=== PATIENT | female | born 1990 | race Caucasian/White ===

== ENCOUNTER 2018-03-05 09:59 | Emergency (ER) | payer SELFPAY | END 2018-03-05 11:04 | disposition home or self-care (01) | LOC: ERS 09:59 | DX: J02.0 Streptococcal pharyngitis (principal); F32.9 Major depressive disorder, single episode, unspecified | CPT/HCPCS: 87430; 87804; 99283 ==

== ENCOUNTER 2019-11-19 14:33 | Day surgery (SDC) | payer OTHER ==
[2019-11-19] MEDS ORDERED: hydrALAZINE 20 MG/ML VIAL SLOW IVP PRN (15:28)
[2019-11-19 15:36] VITALS: BMI 36.2
--- NOTE | 2019-11-19 15:50 | HP ---
TIME: 1520 hours to 1535 hours. LOCATION: Triage bed A. REASON FOR EVALUATION/CHIEF COMPLAINT: Decreased movement. This is a patient of Dr. Mayen. HISTORY OF PRESENT ILLNESS: In brief, this is a 29-year-old, G3, P2, whose last delivery was by , whose due date is on December 16, 2019, placing her at 36 weeks. She has a repeat scheduled based on her report on December 12, 2019. She is here for decreased movement. She states that she had an ultrasound performed just this last past Wednesday in Dr. Mayen's office and there was an unclear "sac" noted, but no other information was given. She was told to keep her followup appointment. She denies contractions, vaginal bleeding, or leakage of fluid. REVIEW OF SYSTEMS: Complete review of systems was checked and is otherwise negative unless specified in the HPI. PAST MEDICAL HISTORY: Negative. PAST SURGICAL HISTORY: Includes a laparoscopy for endometriosis in 2016. OB HISTORY: Significant for vaginal as well as a and the was in 2017. ALLERGIES: NONE. PHYSICAL EXAMINATION: VITAL SIGNS: Stable. She is afebrile. She is normotensive. Blood pressure is 120/70s. GENERAL: Clinically, she is in no acute distress. ABDOMEN: Soft and nontender. PELVIC: Deferred as there is no evidence of contractions. There is no gross evidence of bleeding or leakage of fluid. On monitor: The nonstress test was reviewed by me and it is reactive with moderate variability, and acceleration. The rate is around 130 to 140 and there are no pathological decelerations. There are no contractions on tocodynamometer. ASSESSMENT: This is a patient, who is a multigravida at 36 weeks with decreased movement, but with a reactive nonstress test. Nonstress test information was given by me to the patient. PLAN: 1. Reassurance given. 2. The patient told to keep her followup appointment with Dr. Mayen. 3. Kick counts reviewed with the patient, although there is limited effectiveness based on the data was also reviewed. Job ID: [id number]
== END 2019-11-19 16:01 | disposition home or self-care (01) ==
LOC: L&D/OP 14:33
PROVIDERS: ATTEND Student in an Organized Health Care Education/Training Program
DX: O36.8130 Decreased fetal movements, third trimester, not applicable or unspecified (principal); O34.219 Maternal care for unspecified type scar from previous cesarean delivery; Z3A.36 36 weeks gestation of pregnancy

== ENCOUNTER 2019-12-12 09:02 | Inpatient (IN) | payer BC, MEDICAID, OTHER, SELFPAY ==
[2019-12-12] MEDS: Lactated Ringer's 1,000 ML IV SCH ×2 (09:25→10:14)
[2019-12-12 09:30] VITALS: BMI 36.8
[2019-12-12] MEDS ORDERED: Bicitra 30 ML UDCUP ONE (09:33)
[2019-12-12] MEDS ORDERED: Ondansetron PF 4 MG/2 ML Vial IVP PRN ×3 (09:39→13:55)
[2019-12-12] MEDS ORDERED: Promethazine HCl 25 MG/ML VIAL IM PRN ×3 (09:39→13:55)
[2019-12-12] MEDS ORDERED: hydrALAZINE 20 MG/ML VIAL SLOW IVP PRN ×2 (09:39→13:55)
[2019-12-12] MEDS ORDERED: Bicitra 30 ML UDCUP PO SCH (09:45)
[2019-12-12] MEDS ORDERED: CEFAZOLIN 2 GM in Premix Bag 1 BAG IVPB SCH (09:45)
[2019-12-12 09:56] LABS: Hemoglobin 11.5 g/dL (12.0-16.0); Mean Corpuscular HGB CONC 32.9 g/dL (32.0-36.0); Mean Corpuscular Volume 82.1 fL (78.0-98.0); Mean Platelet Volume 9.1 fL (7.4-10.4); Platelet Count 173 thou/uL (130-400); RBC Distribution Width 13.2 % (11.5-14.5); Red Blood Cell (RBC) Count 4.25 mill/uL (4.20-5.40); White Blood Cell (WBC) Count 7.9 thou/uL (4.8-10.8)
--- NOTE | 2019-12-12 10:13 | PDOC.LDHP ---
Labor and Delivery H&P Chief complaint: scheduled section HPI: 29yo at 39w3d by LMP here for RCS. No complaints. Current gestational age (weeks): 39 Due date: 12/16/19 Dating criteria: last menstrual period Grav: 3 Para: 2 Current complications: none Abnormal US findings: No Past Medical History: denies Current medications: pre-alon vitamins Previous surgical history: low tranverse CS, other (laparoscopy) Allergies/Adverse Reactions: Allergies Allergy/AdvReac Type Severity Reaction Status Date / Time No Known Allergies Allergy Verified 12/12/19 09:28 Social history: none - Physical Exam Vital signs reviewed and normal: yes General: NAD Heart: RRR Lungs: CTAB Abdomen: gravid Extremeties: no edema FHT: category 1 Whitaker contractions every: none - OB Labs Blood type: B RH: positive Antibody Screen: negative HIV: negative RPR: negative HEPSAg: negative 1 hour GCT: negative GBS: negative Urine drug screen: negative Rubella: immune - Assessment L&D Assessment: scheduled repeat section - Plan Plan: admit to L&D, to OR for section, informed consent obtained, anesthesia consult for pain management
[2019-12-12 10:34] LABS: HBSAg Index 0.24 S/CO (0-0.99); Hep B Surf Ag Non-Reactive S/CO (NonReactive); Syphilis Antibody Nonreactive (Nonreactive); Syphilis Antibody Index 0.05 S/CO (<1.00 Non-Reactive)
[2019-12-12] MEDS ORDERED: Oxytocin 10 UNITS/ML VIAL ONE ×3 (10:36→11:06)
[2019-12-12] MEDS ORDERED: MORPHINE 5 MG/10 ML PF VIAL ONE (10:36)
[2019-12-12] MEDS ORDERED: ePHEDrine/0.9% NaCl/PF SYRINGE 50 mg/10 ml ONE (11:05)
[2019-12-12] MEDS ORDERED: Ketorolac Tromethamine 30 MG/ML VIAL ONE (11:05)
[2019-12-12] MEDS ORDERED: Metoclopramide HCl 10 MG/2 ML VIAL ONE (11:05)
[2019-12-12] MEDS ORDERED: Ondansetron PF 4 MG/2 ML Vial ONE (11:05)
[2019-12-12] MEDS ORDERED: PHENYLEPHRINE-NS 100 MCG/ML 10 ML SYRINGE ONE (11:05)
[2019-12-12] MEDS ORDERED: Dexamethasone 20 MG/5 ML VIAL ONE (11:05)
[2019-12-12] MEDS ORDERED: Naloxone HCl 0.4 mg/ml Vial IVP PRN ×2 (11:47)
[2019-12-12] MEDS ORDERED: Promethazine HCl 25 MG SUPP PR PRN (11:47)
[2019-12-12] MEDS ORDERED: Naloxone HCl 0.4 mg/ml Vial IV PRN (11:47)
[2019-12-12] MEDS ORDERED: diphenhydrAMINE 50 MG/ML VIAL IVP PRN (11:47)
[2019-12-12] MEDS ORDERED: L&D-Morphine 4 MG/ML VIAL SLOW IVP PRN (11:47)
[2019-12-12] MEDS ORDERED: Meperidine HCl/PF 25 MG/ML VIAL SLOW IVP PRN (11:47)
[2019-12-12] MEDS ORDERED: HYDROmorphone 2 MG/ML VIAL SLOW IVP PRN (11:47)
[2019-12-12] MEDS ORDERED: Ondansetron HCl/PF 4 MG/2 ML Vial IVP PRN (11:47)
[2019-12-12] MEDS ORDERED: Communication Order-Pharmacy FS SCH (12:00)
[2019-12-12] MEDS ORDERED: Lanolin Ointment 7 GM TUBE TOP PRN (13:55)
[2019-12-12] MEDS ORDERED: Bisacodyl 10 MG SUPP PR PRN (13:55)
[2019-12-12] MEDS ORDERED: Acetaminophen 325 MG TAB PO PRN (13:55)
[2019-12-12] MEDS ORDERED: diphenhydrAMINE 25 MG CAP PO PRN (13:55)
[2019-12-12] MEDS ORDERED: Ibuprofen 800 MG TAB PO SCH (14:00)
--- NOTE | 2019-12-12 14:37 | PDOC.OPDEL ---
OB Operative/Delivery Note Delivery Dr/Surgeon: Tiarra Assist: Edita Pre-Delivery Diagnosis: scheduled section Procedure/Post Delivery Dx: repeat low transverse CS Weeks gestation: 39 Anesthesia: spinal - Findings A Sex: female - 1 min: 9 - 5 min: 9 - Additional Findings/Plan Placenta delivered: spontaneous findings: low transverse hysterotomy without extension, normal uterus, normal tubes, normal ovaries Estimated blood loss: 500cc Post delivery plan: routine recovery
[2019-12-12] MEDS: Ketorolac Tromethamine 30 MG/ML VIAL IVP PRN (17:11)
[2019-12-12] MEDS: Ferrous Sulfate 325 MG TAB PO SCH (22:46)
[2019-12-12] MEDS: Docusate Calcium (SURFAK) 240 MG CAP PO SCH (22:46)
[2019-12-13] MEDS ORDERED: Zolpidem Tartrate 5 MG TAB PO PRN (00:30)
[2019-12-13] MEDS ORDERED: HYDROcodone/Acetaminophen 5/325 mg Tablet PO PRN (00:30)
[2019-12-13] MEDS ORDERED: Sodium Chloride 0.9% 10 ML ONE (03:52)
[2019-12-13] MEDS: Ketorolac Tromethamine 30 MG/ML VIAL IVP PRN (03:56)
[2019-12-13] MEDS: Simethicone Chewable 80 MG TAB PO PRN ×2 (03:56→11:52)
[2019-12-13 06:34] LABS: Hemoglobin 10.2 g/dL (12.0-16.0); Mean Corpuscular HGB CONC 34.9 g/dL (32.0-36.0); Mean Corpuscular Hemoglobin 28.8 pg (27.0-31.0); Mean Corpuscular Volume 82.7 fL (78.0-98.0); Mean Platelet Volume 8.8 fL (7.4-10.4); Platelet Count 178 thou/uL (130-400); RBC Distribution Width 13.1 % (11.5-14.5); Red Blood Cell (RBC) Count 3.52 mill/uL (4.20-5.40)
--- NOTE | 2019-12-13 08:31 | PDOC.PP ---
Post Progress Note Post Day #: 1 Subjective: PT is doing well on PPD1. She has minimal soreness. She has minimal vaginal bleed < menses. She is breast feeding with good latch ust concerned she is not producing milk yet. PT has been up and ambulatory and is passing gas. She had barroso out a few hours ago and is attempting to try to urinate. She has no leg swelling, CP or SOB. PO intake tolerated: yes Flatus: yes Ambulation: yes Vital Signs (12 hours) Temp Pulse Resp BP Pulse Ox 12/13/19 03:56 98.0 F 73 16 103/55 L 12/12/19 23:51 98.5 F 78 18 101/56 L 97 Weight Weight 215 lb - Physical Examination General: NAD Respiratory: non-labored breathing Abdominal: + bowel sounds, lochia, no distention, appropriately TTP Fundus firm & at: 1 cm below umbilicus Extremities: negative homans (B) Skin: CS incision dry & intact, no rash Neurological: no gross focal deficits Psychiatric: A&Ox3, normal affect Result Diagrams: 12/13/19 06:06 Additional Labs: Post Labs Blood Type B POSITIVE 12/12/19 10:15 Hep Bs Antigen Non-Reactive S/CO (NonReactive) 12/12/19 09:32 (1) delivery delivered Code(s): O82 - ENCOUNTER FOR DELIVERY WITHOUT INDICATION Status: Acute - Assessment/Plan PT doing well on PPD1. Minimal pain. Incision dry and intact. VSS, afebrile. H&H Stable. PT just got barroso out and will work on voiding. Pt requested consultation that has been ordered. Continue routine pp care with plan for discharge tomorrow.
[2019-12-13] MEDS: Docusate Calcium (SURFAK) 240 MG CAP PO SCH ×2 (09:20→22:26)
[2019-12-13] MEDS: Prenatal Vitamin 1 TAB PO SCH (09:20)
[2019-12-13] MEDS: Ferrous Sulfate 325 MG TAB PO SCH ×2 (09:21→22:19)
[2019-12-13] MEDS ORDERED: Adacel (T-DAP) 0.5 ML SYRINGE IM ONE (13:55)
[2019-12-13] MEDS: HYDROcodone/Acetaminophen 5/325 mg Tablet PO PRN (16:46)
[2019-12-13] MEDS ORDERED: Ibuprofen 800 MG TAB PO SCH ×2 (22:30→23:00)
--- NOTE | 2019-12-14 02:34 | OP ---
DATE OF PROCEDURE: 12/12/2019 PREOPERATIVE DIAGNOSES: 1. Intrauterine at 39 weeks and 3 days. 2. Prior section x1, declines trial of labor. POSTOPERATIVE DIAGNOSES: 1. Intrauterine at 39 weeks and 3 days. 2. Prior section x1, declines trial of labor. PROCEDURE PERFORMED: Repeat low transverse section via Pfannenstiel skin incision. ANESTHESIA: Spinal. PAYMENT POSTER SURGEON: Hina Kohler PA-C. ESTIMATED BLOOD LOSS: 400 mL. COMPLICATIONS: None. DRAINS: Vanegas catheter. PATHOLOGY: Placenta. FINDINGS: Female infant, cephalic presentation, clear amniotic fluid, vigorous. Apgars and weight are currently pending. Hysterotomy without extension. Normal uterus, ovaries, and tubes bilaterally. A placental cyst was present near cord insertion appeared to be blood containing . OPERATIVE TECHNIQUE: The patient was taken to the operating room, where spinal anesthesia was obtained without difficulty. The patient was prepped and draped in a sterile fashion in the dorsal supine position with leftward tilt. After ensuring adequacy of anesthesia, a Pfannenstiel skin incision was made and carried down to the underlying subcutaneous tissue with a knife. The fascia was nicked in midline with knife and carried laterally with Tamayo scissors. The superior aspect of the fascia was tented with 2 Kochers and dissected off the rectus with the Tamayo's. The inferior aspect of the fascia was tented with 2 Kochers and dissected off the rectus with Tamayo's as well. The peritoneum was bluntly entered into and manually retracted. The Danish O retractor was placed and the lower uterine segment was incised in a transverse fashion and extended with a Plascencia maneuver. The 's head was brought to the hysterotomy and delivered with fundal pressure followed by the body. The 's cord was clamped and handed to awaiting nursery nurse. Placenta was allowed to spontaneously deliver. The placenta was then evaluated and the above findings noted. The uterus was exteriorized, cleared of all clots and debris and the posterior cul-de-sac was lapped out. The uterus was placed back in the abdomen and repaired with #1 Monocryl in a running locking fashion with excellent hemostasis. The pelvis and paracolic gutters were irrigated and suctioned. The Danish O retractor was removed and the rectus muscles were examined and noted to be hemostatic. The fascia was reapproximated with a 0 PDS x2 sutures with excellent reapproximation. The skin was reapproximated with 2-0 plain gut in a running fashion and the skin was closed with 4-0 Monocryl in a subcuticular fashion. Dermabond was applied as well as a pressure dressing. The patient tolerated the procedure well. Sponge, lap, and needle counts were correct x2. The patient was taken to recovery room in stable condition. The patient received Ancef 2 g prior to the procedure. Job ID: [id number]
[2019-12-14] MEDS: Ibuprofen 800 MG TAB PO SCH ×2 (06:16→14:07)
[2019-12-14] MEDS: Docusate Calcium (SURFAK) 240 MG CAP PO SCH (08:05)
[2019-12-14] MEDS: Simethicone Chewable 80 MG TAB PO PRN (08:05)
[2019-12-14] MEDS: HYDROcodone/Acetaminophen 5/325 mg Tablet PO PRN (08:05)
[2019-12-14] MEDS: Prenatal Vitamin 1 TAB PO SCH (08:05)
[2019-12-14] MEDS: Ferrous Sulfate 325 MG TAB PO SCH (08:11)
[2019-12-14 08:27] VITALS: BP 110/60; TEMP 98.2
--- NOTE | 2019-12-14 15:42 | PDOC.PP ---
Post Progress Note Post Day #: 2 PO intake tolerated: yes Flatus: yes Ambulation: yes Vital Signs (12 hours) Temp Pulse Resp BP Pulse Ox 12/14/19 08:00 98.2 F 72 18 110/60 97 12/14/19 04:10 97.9 F 77 18 123/57 L Weight Weight 215 lb - Physical Examination General: NAD Respiratory: non-labored breathing Abdominal: no distention, appropriately TTP Fundus firm & at: umb-2 Skin: CS incision dry & intact Neurological: no gross focal deficits Psychiatric: normal affect Result Diagrams: 12/13/19 06:06 Additional Labs: Post Labs Blood Type B POSITIVE 12/12/19 10:15 Hep Bs Antigen Non-Reactive S/CO (NonReactive) 12/12/19 09:32 - Assessment/Plan POD2 s/p RCS VSSAF Doing well, no issues Mild acute blood loss anemia, asx, cont PNV on sx. Rh pos RImm DC home FU 2w
== END 2019-12-14 18:30 | disposition home or self-care (01) | DRG 787 ==
LOC: L&D 09:02 → 3SW 14:02
PROVIDERS: ADMIT Student in an Organized Health Care Education/Training Program; ATTEND Student in an Organized Health Care Education/Training Program
PROC: 10D00Z1 Extraction of Products of Conception, Low, Open Approach (ICD-10-PCS; principal; 2019-12-12)
DX: O34.211 Maternal care for low transverse scar from previous cesarean delivery (principal); D62 Acute posthemorrhagic anemia; O90.81 Anemia of the puerperium; Z3A.39 39 weeks gestation of pregnancy; Z37.0 Single live birth
CPT/HCPCS: 36415; 51702; 85027; 86780; 86850; 86900; 86901; 87340; 88307; J0690; J1100; J1885; J2274; J2405; J2590; J2765